=== PATIENT | female | born 1970 | race Caucasian/White ===

== ENCOUNTER 2021-01-01 14:14 | Emergency (ER) | payer BC ==
[2021-01-01 15:01] VITALS: BP 131/73; PULSE 84; RESP 20; TEMP 98.3
[2021-01-01] MEDS ORDERED: MORPHINE SULFATE 4 MG/ML SYRINGE IM STA (15:17)
--- NOTE | 2021-01-01 16:08 | XR ---
Right hand and right forearm HISTORY: Trauma and pain 3 views of the right hand, frontal lateral views the right forearm There is marked arthropathy within the right wrist, remodeling present at the carpometacarpal joint o f the first digit, multiple cystic lucencies within the carpal bones consistent with geodes, remodeli ng at the radiocarpal joint. Alignment is maintained. Some arthropathy changes also present at the in terphalangeal joints. There is some cystic geode, joint space loss, marginal spurring the proximal in terphalangeal joints. Forearm shows normal mineralization. Alignment is maintained. IMPRESSION: No acute fracture or dislocation.
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
== END 2021-01-01 17:09 | disposition home or self-care (01) ==
LOC: EC 14:14
DX: S02.2XXA Fracture of nasal bones, initial encounter for closed fracture (principal); S00.432A Contusion of left ear, initial encounter; S09.90XA Unspecified injury of head, initial encounter; M79.631 Pain in right forearm; M79.641 Pain in right hand; E11.9 Type 2 diabetes mellitus without complications; F17.200 Nicotine dependence, unspecified, uncomplicated; I10 Essential (primary) hypertension; Z88.6 Allergy status to analgesic agent; Y04.0XXA Assault by unarmed brawl or fight, initial encounter; Y92.009 Unspecified place in unspecified non-institutional (private) residence as the place of occurrence of the external cause
CPT/HCPCS: 73090; 73130; 70486; 99284; 96372; J2270